=== PATIENT | male | born 1950 | race Caucasian/White ===

== ENCOUNTER 2024-06-05 09:57 | Observation (INO) | payer OTHER, MEDICARE ==
[2024-06-05 10:11] VITALS: BMI 22.4
[2024-06-05] MEDS ORDERED: ACETAMINOPHEN 500 MG TABLET (FP) ONE (11:00)
[2024-06-05] MEDS: LIDOCAINE 5% TOPICAL PATCH TP ONE (11:00)
[2024-06-05] MEDS ORDERED: KETOROLAC TROMETHAMINE 30 MG/1 ML VIAL ONE (11:00)
[2024-06-05] MEDS ORDERED: LIDOCAINE 5% TOPICAL PATCH ONE (11:00)
[2024-06-05] MEDS: KETOROLAC TROMETHAMINE 30 MG/1 ML VIAL IM ONE (11:12)
[2024-06-05] MEDS: ACETAMINOPHEN 500 MG TABLET (FP) PO ONE (11:13)
[2024-06-05 12:11] LABS: HEMATOCRIT 50.3 % (35.4-49); HEMOGLOBIN 16.5 G/dL (11.7-16.9); MCH 30.5 pg (25.7-33.7); MCHC 32.8 g/dl (32.0-35.9); MEAN CELL VOLUME 92.8 fl (80-96); MEAN PLT VOLUME 7.8 fl (7.5-11.1); PLATELET COUNT 226.3 10^3/uL (134-434); RBC 5.42 10^6/uL (4.00-5.60); RDW 13.8 % (11.9-15.9); WHITE BLOOD COUNT 13.9 10^3/uL (4.0-10.8)
[2024-06-05 12:24] LABS: ALBUMIN 4.1 g/dl (3.4-5.0); BILIRUBIN,TOTAL 1.4 mg/dl (0.2-1); CALCIUM 9.2 mg/dl (8.5-10.1); CREATININE 0.8 mg/dl (0.6-1.3); POTASSIUM 4.1 mmol/L (3.5-5.1); TOT PROT 5.8 g/dl (6.4-8.2)
[2024-06-05 12:51] LABS: PLATELET ESTIMATE ADEQUATE
[2024-06-05] MEDS: LIDOCAINE PATCH REMOVAL MC ONE (23:20)
[2024-06-05] MEDS: ACETAMINOPHEN 1000 MG/100 ML BAG IVPB PRN (23:26)
[2024-06-06 09:10] LABS: ALBUMIN 3.9 g/dl (3.4-5.0); BILIRUBIN,TOTAL 1.5 mg/dl (0.2-1); CALCIUM 8.9 mg/dl (8.5-10.1); CREATININE 0.7 mg/dl (0.6-1.3); MAGNESIUM 1.9 mg/dL (1.8-2.4); PHOSPHOROUS 2.7 (2.5-4.9); POTASSIUM 3.9 mmol/L (3.5-5.1); TOT PROT 5.5 g/dl (6.4-8.2)
[2024-06-06 09:32] LABS: BASO % 0.8 % (0-2.0); EOS % 1.6 % (0-4.5); HEMATOCRIT 46.2 % (35.4-49); HEMOGLOBIN 16.1 GM/dL (11.7-16.9); MCH 31.6 pg (25.7-33.7); MCHC 34.9 g/dl (32.0-35.9); MEAN CELL VOLUME 90.5 fl (80-96); MEAN PLT VOLUME 7.7 fl (7.5-11.1); MONO % 7.9 % (3.8-10.2); NEUT % 76.7 % (42.8-82.8); PLATELET COUNT 221 10^3/uL (134-434); RDW 13.3 % (11.9-15.9); WHITE BLOOD COUNT 9.5 K/mm3 (4.0-10.0)
[2024-06-06 09:48] VITALS: BP 138/69; PULSE 85; RESP 18; TEMP 98.6
== END 2024-06-06 13:05 | disposition home or self-care (01) ==
LOC: FER 09:57 → FM/S 11:35
PROC: 3E033NZ Introduction of Analgesics, Hypnotics, Sedatives into Peripheral Vein, Percutaneous Approach (ICD-10-PCS; principal; 2024-06-05)
PROC: 3E0233Z Introduction of Anti-inflammatory into Muscle, Percutaneous Approach (ICD-10-PCS; 2024-06-05)
PROC: 3E033NZ Introduction of Analgesics, Hypnotics, Sedatives into Peripheral Vein, Percutaneous Approach (ICD-10-PCS; 2024-06-05)
DX: S22.42XA Multiple fractures of ribs, left side, initial encounter for closed fracture (principal); S42.032A Displaced fracture of lateral end of left clavicle, initial encounter for closed fracture; R20.2 Paresthesia of skin; W18.39XA Other fall on same level, initial encounter; Y93.K1 Activity, walking an animal; Y92.410 Unspecified street and highway as the place of occurrence of the external cause
CPT/HCPCS: 36415; 71101-TC-LT-FY; 73030-TC-LT-FY; 80053; 80061; 83036; 83735; 84100; 84439; 84443; 85025; 85027; 93005; 96372; 96374; 96375; 97116-GP; 97162-GP; 99285-25; G0378; J0131